=== PATIENT | female | born 1935 | race Caucasian/White ===

== ENCOUNTER 2020-01-13 06:47 | Day surgery (SDC) | payer MEDICARE, BC ==
[~2020-01-13] VITALS: Ht 162.6 cm; Wt 56.5 kg
[2020-01-13] VITALS (17 sets, daily range): BP systolic 127–172; BP diastolic 52–89
[2020-01-13] MEDS ORDERED: CHOL400T57 PO (07:39)
[2020-01-13] MEDS ORDERED: FAMO-129 PO (07:39)
[2020-01-13] MEDS ORDERED: CLOP75TA15 PO (07:39)
[2020-01-13] MEDS ORDERED: ASCO-139 PO (07:39)
[2020-01-13] MEDS ORDERED: MULT-1085 PO (07:39)
[2020-01-13] MEDS ORDERED: ROSU5TAB PO (07:39)
[2020-01-13] MEDS ORDERED: APIX2.5T PO (07:39)
[2020-01-13] MEDS ORDERED: HYDR-4070 PO (07:39)
[2020-01-13] MEDS ORDERED: ECHI350C PO (07:39)
[2020-01-13] MEDS ORDERED: normal saline 1000ml 1,000 ML IV PRN (07:45)
[2020-01-13 07:57] LABS: BASOPHILS # (AUTO) 0.1 X10'3 (0-0.2); BASOPHILS % (AUTO) 0.9 % (0-1); EOSINOPHILS # (AUTO) 0.1 X10'3 (0-0.9); EOSINOPHILS % (AUTO) 1.1 % (0-6); HEMATOCRIT 38.5 % (35.0-45.0); HEMOGLOBIN 13.2 g/dl (12.0-16.0); LYMPHOCYTES # (AUTO) 1.6 X10'3 (1.1-4.8); LYMPHOCYTES % (AUTO) 24.9 % (21-51); MEAN CORPUSCULAR HEMOGLOBIN 32.1 PG (27.0-31.0); MEAN CORPUSCULAR HGB CONC 34.3 g/dL (33.0-36.5); MEAN CORPUSCULAR VOLUME 93.4 FL (78-98); MEAN PLATELET VOLUME 7.1 FL (7.4-10.4); MONOCYTES # (AUTO) 0.4 X10'3 (0-0.9); MONOCYTES % (AUTO) 6.4 % (2-12); NEUTROPHILS # (AUTO) 4.2 X10'3 (1.8-7.7); NEUTROPHILS % (AUTO) 66.7 % (42-75); PLATELET COUNT 312 X10'3 (140-440); RED BLOOD COUNT 4.12 X10'6 (4.20-5.60); RED CELL DISTRIBUTION WIDTH 12.5 % (11.5-14.5); WHITE BLOOD COUNT 6.3 X10'3 (4.5-11.0)
[2020-01-13] MEDS ORDERED: LEVO88TA2 PO (08:05)
[2020-01-13 08:07] LABS: ALBUMIN 3.6 G/DL (3.4-5.0); ANION GAP 11 (8-16); BLOOD UREA NITROGEN 10 MG/DL (7-18); BUN/CREATININE RATIO 11.5 (6.6-38.0); CALCIUM 9.1 MG/DL (8.5-10.1); CHLORIDE 103 MMOL/L (99-107); CREATININE 0.87 MG/DL (0.40-0.90); GLUCOSE 106 MG/DL (70-104); POTASSIUM 3.7 MMOL/L (3.5-5.1); SODIUM 138 MMOL/L (135-145); TOTAL CARBON DIOXIDE 24.4 MMOL/L (24-32); eGFR 62 ML/MIN
[2020-01-13] MEDS ORDERED: normal saline 1000ml 1,000 ML IV SCH (08:18)
[2020-01-13] MEDS ORDERED: midazolam 2 mg/2 ml injection IV PRN (08:20)
[2020-01-13] MEDS ORDERED: LIDOcaine 1%/PF 5ML 10 MG/ML VIAL SQ ONE (08:20)
[2020-01-13] MEDS ORDERED: fentaNYL/PF 50MCG/1 ML 2ML syringe IV PRN (08:20)
[2020-01-13] MEDS ORDERED: midazolam 2 mg/2 ml injection ONE (08:29)
[2020-01-13] MEDS ORDERED: fentaNYL/PF 50MCG/1 ML 2ML syringe ONE (08:30)
[2020-01-13] MEDS ORDERED: gelatin sponge, absorbable (Gelfoam 12-7MM) sponge TP ONE (08:47)
== END 2020-01-13 12:30 | disposition home or self-care (01) ==
LOC: SSTAY O 06:47
PROVIDERS: ATTEND Radiology Vascular & Interventional Radiology
DX: R91.8 Other nonspecific abnormal finding of lung field (principal); C34.31 Malignant neoplasm of lower lobe, right bronchus or lung; I25.10 Atherosclerotic heart disease of native coronary artery without angina pectoris; Z88.8 Allergy status to other drugs, medicaments and biological substances; Z79.899 Other long term (current) drug therapy; Z79.01 Long term (current) use of anticoagulants; Z87.891 Personal history of nicotine dependence
CPT/HCPCS: 32405; 36415; 71045; 77012; 80048; 85025; 85610; 99152; 99153; J2250; J3010